=== PATIENT | female | born 1985 | race Two or more races ===

== ENCOUNTER 2022-11-23 17:54 | Emergency (ER) | payer OTHER ==
[~2022-11-23] VITALS: Ht 162.6 cm; Wt 70.4 kg
[2022-11-23 18:48] LABS: Basophils # (auto) 0.1 10 ^3/uL (0-0.2); Basophils % (auto) 1.1 % (0.0-2.0); Eosinophils # (auto) 0.3 10 ^3/uL (0-0.8); Eosinophils % (auto) 4.9 % (0.0-7.0); Hematocrit 43.9 % (36.0-46.0); Hemoglobin 13.8 g/dL (12.2-16.2); Lymphocytes # (auto) 3.3 10 ^3/uL (0.4-5.4); Lymphocytes % (auto) 48.1 % (10.0-50.0); Mean Corpuscular Hgb Conc. 31.4 g/dL (32.0-36.0); Mean Corpuscular Volume 69.9 fL (80.0-100.0); Monocytes # (auto) 0.5 10 ^3/uL (0-1.3); Monocytes % (auto) 7.6 % (0.0-12.0); Neutrophils # (auto) 2.6 10 ^3/uL (1.6-8.6); Neutrophils % (auto) 38.3 % (37.0-80.0); Nucleated Red Blood Cells % 0.1 %; Red Blood Cells 6.28 10^6/uL (4.0-5.20); Red Cell Distribution Width 15.6 % (11.8-14.3); White Blood Cell 6.8 10^3/uL (4.4-10.8)
[2022-11-23 18:55] LABS: Alanine Aminotransferase 24 U/L (7-40); Alkaline Phosphatase 68 U/L (46-116); Anion Gap 7.9 (5-15); Aspartate Aminotransferase 10 U/L (13-40); BUN/Creatinine Ratio 16.9 (10.0-20.0); Bilirubin, Total 0.6 mg/dL (0.2-1.0); Blood Urea Nitrogen 14 mg/dL (9-23); Calcium 10.1 mg/dL (8.5-10.1); Carbon Dioxide 26.1 mmol/L (20-30); Chloride 105 mmol/L (98-107); Glucose 88 mg/dL (74-106); Potassium 4.1 mmol/L (3.5-5.1); Sodium 139 mmol/L (136-145); Total Protein 8.1 g/dL (5.7-8.2)
[2022-11-23 19:32] LABS: Urine Bacteria FEW /hpf (None Seen); Urine Blood 1+ /uL (Negative); Urine Clarity Clear (Clear); Urine Color Yellow (Yellow); Urine Mucus FEW (None Seen); Urine Protein, UAD TRACE (Negative); Urine Specific Gravity 1.028 (1.001-1.035); Urine Urobilinogen Normal (Negative); Urine WBC 2 /hpf (0 - 5)
[2022-11-23 19:55] LABS: Magnesium 1.9 mg/dL (1.6-2.6)
[2022-11-23] MEDS ORDERED: DICL50TA2 PO (20:38)
[2022-11-23] MEDS ORDERED: CIPR-173 PO (20:38)
[2022-11-23 21:08] VITALS: BP 124/77; PULSE 60; RESP 17; TEMP 98; O2SAT 100
== END 2022-11-23 21:10 | disposition home or self-care (01) ==
LOC: ER 17:54
DX: N39.0 Urinary tract infection, site not specified (principal); R07.89 Other chest pain; Z88.0 Allergy status to penicillin; Z88.2 Allergy status to sulfonamides; Z91.040 Latex allergy status
CPT/HCPCS: 36415; 71046; 80053; 81001; 83735; 84484; 85025; 85379; 93005